=== PATIENT | male | born 1980 | race Caucasian/White ===

== ENCOUNTER 2017-10-18 19:55 | Emergency (ER) | payer SELFPAY ==
[2017-10-18 20:15] VITALS: BP 128/74
[2017-10-18 22:17] LABS: APPEARANCE,URINE CLEAR; BILIRUBIN,URINE NEGATIVE (NEGATIVE); COLOR,URINE YELLOW; GLUCOSE, URINE NEGATIVE (NEGATIVE); KETONES,URINE NEGATIVE (NEGATIVE); LEUKOCYTE ESTERASE,URINE TRACE (NEGATIVE); NITRITE,URINE NEGATIVE (NEGATIVE); PROTEIN,URINE NEGATIVE (NEGATIVE); URINE SPECIFIC GRAVITY 1.011; UROBILINOGEN,URINE NEGATIVE mg/dL (<2.0)
[2017-10-18] MEDS ORDERED: ONDANSETRON 4 MG TAB.RAPDIS PO ONE (22:30)
[2017-10-18] MEDS ORDERED: CLONIDINE 0.1 MG/24 HR PATCH.TDWK TD ONE (22:30)
[2017-10-18] MEDS ORDERED: LOPERAMIDE HCL 2 MG CAPSULE PO ONE (22:30)
--- NOTE | 2017-10-18 22:31 | ER Document Report ---
ED General - General Chief Complaint: Psych Problem Stated Complaint: DETOX Time Seen by Provider: 10/18/17 22:30 Notes: Patient is a 37-year-old male past medical history heroin abuse since age 17, presents after he has been off his methadone for 3 days. He used some heroin to help his symptoms, but he is requesting detox. He recently moved down to [place] and was having trouble getting into the [place] methadone clinic. He is having nausea, vomiting, diarrhea and shivering. Denies alcohol or benzo withdrawal. TRAVEL OUTSIDE OF THE U.S. IN LAST 30 DAYS: No - Related Data Allergies/Adverse Reactions: No Known Allergies Allergy (Unverified 10/18/17 19:58) Past Medical History - General Information source: Patient - Social History Smoking Status: Current Every Day Smoker Drug Abuse: Heroin Family History: Reviewed & Not Pertinent Review of Systems - Review of Systems Notes: REVIEW OF SYSTEMS: CONSTITUTIONAL: -fevers, +chills EENT: -eye pain, -difficulty swallowing, -nasal congestion CARDIOVASCULAR: -chest pain, -syncope. RESPIRATORY: -cough, -SOB GASTROINTESTINAL: -abdominal pain, +nausea, +vomiting, +diarrhea GENITOURINARY: -dysuria, -hematuria MUSCULOSKELETAL: -back pain, -neck pain SKIN: -rash or skin lesions. HEMATOLOGIC: -easy bruising or bleeding. LYMPHATIC: -swollen, enlarged glands. NEUROLOGICAL: -altered mental status or loss of consciousness, -headache, - neurologic symptoms PSYCHIATRIC: -anxiety, -depression. ALL OTHER SYSTEMS REVIEWED AND NEGATIVE. Physical Exam - Vital signs Vitals: Temp Pulse Resp BP Pulse Ox 98.8 F 83 16 128/74 H 98 10/18/17 20:13 10/18/17 20:13 10/18/17 20:13 10/18/17 20:13 10/18/17 20:13 - Notes Notes: PHYSICAL EXAMINATION: GENERAL: In no acute distress. HEAD: Atraumatic, normocephalic. EYES: Pupils equal round and reactive to light, extraocular movements intact, sclera anicteric, conjunctiva are normal. ENT: nares patent, oropharynx clear without exudates. Moist mucous membranes. NECK: Normal range of motion, supple without lymphadenopathy LUNGS: Breath sounds clear to auscultation bilaterally and equal. No wheezes rales or rhonchi. HEART: Regular rate and rhythm without murmurs ABDOMEN: Soft, nontender, normoactive bowel sounds. No guarding, no rebound. No masses appreciated. EXTREMITIES: Normal range of motion, no pitting or edema. No cyanosis. NEUROLOGICAL: Cranial nerves grossly intact. Normal speech, normal gait. Normal sensory and motor exams. PSYCH: Normal mood, normal affect. SKIN: Warm, Dry, normal turgor, no rashes or lesions noted. Course - Re-evaluation Re-evalutation: Pt with signs and symptoms of opiate withdrawal. No inpatient detox at [facility]. Provided him with outpatient referral and symptomatic treatment with clonidine , Zofran and Imodium. - Vital Signs Vital signs: Temp Pulse Resp BP Pulse Ox 98.8 F 83 16 128/74 H 98 10/18/17 20:13 10/18/17 20:13 10/18/17 20:13 10/18/17 20:13 10/18/17 20:13 - Laboratory Laboratory results interpreted by me: 10/18/17 21:38 Ur Leukocyte Esterase TRACE H Discharge - Discharge Clinical Impression: Opioid withdrawal Condition: Stable Disposition: HOME, SELF-CARE Additional Instructions: Call the resources provided for outpatient referral to detox. Use Zofran for nausea and Imodium for diarrhea. Prescriptions: Ondansetron [Zofran Odt 4 mg Tablet] 1 - 2 tab PO Q4H PRN #15 tab.rapdis PRN Reason: For Nausea/Vomiting Forms: Elevated Blood Pressure Referrals: [facility] [Outside] - Follow up as needed
== END 2017-10-18 22:54 | disposition home or self-care (01) ==
LOC: ER 19:55
DX: F11.23 Opioid dependence with withdrawal (principal); R11.2 Nausea with vomiting, unspecified; R19.7 Diarrhea, unspecified; F17.200 Nicotine dependence, unspecified, uncomplicated
CPT/HCPCS: 99284; 81001; S0119; J3490

== ENCOUNTER 2017-10-19 01:46 | Emergency (ER) | payer SELFPAY ==
[2017-10-19 01:53] VITALS: BP 122/82
--- NOTE | 2017-10-19 06:41 | ER Document Report ---
ED General - General Mode of Arrival: Ambulatory Information source: Patient TRAVEL OUTSIDE OF THE U.S. IN LAST 30 DAYS: No <UNIQUE BANG - Last Filed: 10/19/17 08:14> <PEACE HENDRICKSON - Last Filed: 10/19/17 10:42> <GARRETT CHURCH - Last Filed: 10/19/17 10:49> - General Chief Complaint: Medical Clearance Stated Complaint: WITHDRAWL Time Seen by Provider: 10/19/17 06:12 Notes: 37 y.o male with a PMHx of Heroine abuse since the age of 27 (although previous record states 17 years of age) presents to the ED requesting for detox. Pt recently moved down to [place] from [facility] and is having trouble getting into the [facility] and reports that he is withdrawing from Methadone. Pt reports that he last had Methadone 3 days ago and states that he has been using Heroine in the meantime to help him out while he was without Methadone. He denies ever trying detoxing from Heroine in the past 10 years. Pt complains of nausea, vomiting and diarrhea today, reporting the last episode of vomiting was about 30 minutes ago and last episode of diarrhea was about 1.5 hours ago. He reports that he has not eaten, drank or slept much in the past few days. He states that he currently is experiencing nausea, worsening with "certain smells". Pt was seen here yesterday evening and had a Clonidine patch placed last night around 2245. Pt was discharged from here last night with instructions to follow up with the Methadone clinic who told him to come here if he needed because there are not any bed available. Pt denies any other medical issues or any PSHx. Pt denies any allergies. Pt came with 2 other people, all of which came in with drug withdrawal and recently moved from [place]. (UNIQUE BANG) - Related Data Allergies/Adverse Reactions: No Known Allergies Allergy (Unverified 10/18/17 19:58) Past Medical History - General Information source: Patient - Social History Smoking Status: Current Every Day Smoker Chew tobacco use (# tins/day): No Frequency of alcohol use: Social Drug Abuse: Heroin - managed with Methadone when he lived in [place]. 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[place], currently doesn't work Family History: Reviewed & Not Pertinent Patient has suicidal ideation: No Patient has homicidal ideation: No Renal/ Medical History: Denies: Hx Peritoneal Dialysis <UNIQUE BANG - Last Filed: 10/19/17 08:14> Review of Systems - Review of Systems Constitutional: See HPI - Requesting detox EENT: No symptoms reported Cardiovascular: No symptoms reported Respiratory: No symptoms reported Gastrointestinal: See HPI, Diarrhea, Nausea, Vomiting Genitourinary: No symptoms reported Male Genitourinary: No symptoms reported Musculoskeletal: No symptoms reported Skin: No symptoms reported Hematologic/Lymphatic: No symptoms reported Neurological/Psychological: No symptoms reported -: Yes All other systems reviewed and negative <UNIQUE BANG - Last Filed: 10/19/17 08:14> Physical Exam <UNIQUE BANG - Last Filed: 10/19/17 08:14> <PEACE HENDRICKSON - Last Filed: 10/19/17 10:42> <GARRETT CHURCH - Last Filed: 10/19/17 10:49> - Vital signs Vitals: Temp Pulse Resp BP Pulse Ox 98.1 F 81 18 122/82 98 10/19/17 01:51 10/19/17 01:51 10/19/17 01:51 10/19/17 01:51 10/19/17 01:51 - Notes Notes: Physical Exam: General: Alert, appears well. Sleeping upon entering room. HEENT: Normocephalic. Atraumatic. PERRL. Extraocular movements intact. Dry mucous membranes. Neck: Supple. Non-tender. Respiratory: No respiratory distress. Clear and equal breath sounds bilaterally. Cardiovascular: Regular rate and rhythm. Abdominal: Normal Inspection. Non-tender. No distension. Normal Bowel Sounds. Back: Non-tender. No deformity or step off. Extremities: Moves all four extremities. Upper extremities: Normal inspection. Normal ROM. Lower extremities: Normal inspection. No edema. Normal ROM. Neurological: Normal cognition. AAOx3. Normal speech. Psychological: Normal affect. Normal Mood. Skin: Warm. Dry. Normal color. (UNIQUE BANG) Course - Laboratory Result Diagrams: 10/19/17 06:51 10/19/17 06:51 <UNIQUE BANG - Last Filed: 10/19/17 08:14> - Laboratory Result Diagrams: 10/19/17 06:51 10/19/17 06:51 <PEACE HENDRICKSON - Last Filed: 10/19/17 10:42> - Laboratory Result Diagrams: 10/19/17 06:51 10/19/17 06:51 <GARRETT CHURCH - Last Filed: 10/19/17 10:49> - Vital Signs Vital signs: Temp Pulse Resp BP Pulse Ox 98.1 F 81 18 122/82 98 10/19/17 01:51 10/19/17 01:51 10/19/17 01:51 10/19/17 01:51 10/19/17 01:51 - Laboratory Laboratory results interpreted by me: 10/19/17 10/19/17 06:51 06:51 RDW 14.3 H Sodium 146.4 H Discharge <UNIQUE BANG - Last Filed: 10/19/17 08:14> <PEACE HENDRICKSON - Last Filed: 10/19/17 10:42> <GARRETT CHURCH - Last Filed: 10/19/17 10:49> - Discharge Clinical Impression: Methadone use disorder, severe, dependence, Heroin abuse Condition: Stable Disposition: HOME, SELF-CARE Additional Instructions: NARCOTIC / OPIOD ABUSE: Narcotics and opiods are pain-relieving drugs that are often abused. They are addicting. Narcotics cause euphoria, but it often takes increasing amounts to "feel good" and avoid withdrawal symptoms. Overdose of narcotics causes small pupils, coma, and decreased breathing. It's a common cause of . Purity of street narcotics is unpredictable. Injection of narcotics is risky for abscesses, endocarditis (heart infection), pneumonia, and AIDS. Withdrawal from narcotics causes goose bumps, watery mouth, sweating, nasal congestion, muscle aches, abdominal cramps, vomiting, and diarrhea. There 's often restlessness and confusion. Treatment programs are available, but you must make the decision to quit. Medication (such as clonidine) can be prescribed to control the symptoms of withdrawal. FOLLOW-UP CARE: You have been provided resources for both inpatient and outpatient substance abuse treatment. Please continue working with [facility] for a detox bed. If you experience worsening or a significant change in your symptoms , notify the physician immediately or return to the Emergency Department at any time for re-evaluation. Referrals: [facility] [Outside] - Follow up as needed Scribe Attestation: 10/19/17 07:09 I personally performed the services described in the documentation, reviewed and edited the documentation which was dictated to the scribe in my presence, and it accurately records my words and actions. (GARRETT CHURCH) Scribe Documentation - Scribe Written by Landon:: Landon Westbrook 10/19/17 [id number] acting as scribe for :: Jose Juan <UNIQUE BANG - Last Filed: 10/19/17 08:14>
[2017-10-19] MEDS ORDERED: DIPHENHYDRAMINE HCL 50 MG CAPSULE PO ONE (06:45)
[2017-10-19] MEDS ORDERED: ONDANSETRON 4 MG TAB.RAPDIS PO ONE (06:45)
[2017-10-19 07:26] LABS: ABSOLUTE LYMPHOCYTES (AUTO) 2.1 10^3/uL (0.5-4.7); ABSOLUTE MONOCYTES (AUTO) 0.4 10^3/uL (0.1-1.4); ABSOLUTE NEUT (AUTO) 6.4 10^3/uL (1.7-8.2); BASOPHILS % (AUTO) 0.3 % (0-2); EOSINOPHILS % (AUTO) 0.3 % (0-6); HEMATOCRIT 41.7 % (37.9-51.0); HEMOGLOBIN 13.9 g/dL (13.5-17.0); LYMPHOCYTES % (AUTO) 23.5 % (13-45); MEAN CORPUSCULAR HGB CONC 33.5 g/dL (32.0-36.0); MEAN CORPUSCULAR VOLUME 84 fl (80-97); MONOCYTES % (AUTO) 4.9 % (3-13); PLATELET COUNT 295 10^3/uL (150-450); RED BLOOD COUNT 4.97 10^6/uL (4.35-5.55); RED CELL DISTRIBUTION WIDTH 14.3 % (11.5-14.0); TOTAL CELLS COUNTED % (AUTO) 100 %
[2017-10-19 07:35] LABS: ALANINE AMINOTRANSFERASE 41 U/L (21-72); ALBUMIN 4.2 g/dL (3.5-5.0); ALKALINE PHOSPHATASE 69 U/L (38-126); ANION GAP 12 (5-19); ASPARTATE AMINO TRANSFERASE 20 U/L (17-59); BILIRUBIN,DIRECT 0.3 mg/dL (0.0-0.4); BILIRUBIN,TOTAL 0.4 mg/dL (0.2-1.3); BLOOD UREA NITROGEN 13 mg/dL (7-20); CALCIUM 9.9 mg/dL (8.4-10.2); CARBON DIOXIDE 27 mmol/L (22-30); CHLORIDE 107 mmol/L (98-107); GLUCOSE 108 mg/dL (75-110); POTASSIUM 4.5 mmol/L (3.6-5.0); SODIUM 146.4 mmol/L (137-145); TOTAL PROTEIN 7.9 g/dL (6.3-8.2)
[2017-10-19 11:48] LABS: AMORPHOUS SEDIMENT,URINE TRACE /HPF; APPEARANCE,URINE SLIGHTLY-CLOUDY; BILIRUBIN,URINE NEGATIVE (NEGATIVE); COLOR,URINE YELLOW; GLUCOSE, URINE NEGATIVE (NEGATIVE); KETONES,URINE NEGATIVE (NEGATIVE); LEUKOCYTE ESTERASE,URINE TRACE (NEGATIVE); NITRITE,URINE NEGATIVE (NEGATIVE); PROTEIN,URINE NEGATIVE (NEGATIVE); URINE SPECIFIC GRAVITY 1.021
--- NOTE | 2017-10-19 13:59 | PSYCHOLOGICAL NOTE ---
Psych Note - Psych Note Psych Note: Reason for consult: detox 37 y.o male with a PMHx of Heroine abuse since the age of 27 (although previous record states 17 years of age) presents to the ED requesting for detox. Pt recently moved down to [place] from [facility] and is having trouble getting into the [facility] and reports that he is withdrawing from Methadone. Pt reports that he last had Methadone 3 days ago and states that he has been using Heroine in the meantime to help him out while he was without Methadone. He denies ever trying detoxing from Heroine in the past 10 years. Patient disclosed that he currently lives with his cousin and was brought to [facility] because "I am sick... I am withdrawing from methadone and heroin." Patient states he has been using on and off for the last 10 to years and has never been a substance abuse treatment. Patient denies any mental health treatment stating "if I had a problem I just used methadone." Patient is unclear on how long he has been in the current local area stating 4 to 5 days; he is originally from [facility]. Patient discloses passive suicidal ideation because "I want the pain and everything to go away... I have not slept or eaten in days." Patient denies having any plan but being very sick. Patient is alert and orientated to person, place, time and circumstance. Mood is irritable with patient visibly appearing to feel ill. Patient denies homicidal ideation and endorses passive suicidal ideation i.e. no plans means or intent. Delusions are absent behaviors congruent with intact reality based presentation i.e. organized and linear thought process. Eye contact is poor. Conversational speech is muffled at times difficult to hear. Attention and concentration are fair. Insight, judgment, impulse control is historically poor due to substance abuse no mediation recommendations at this time. diagnosis 292.0 (F11.23) opiate withdrawal; methadone and heroin Impression\\plan: Patient is cleared from acute psychiatric services. Patient is requesting assistance in obtaining a detox bed. Patient has been engaged with [facility] for a bed. Clinician provided additional resources for both inpatient and outpatient substance abuse. Patient endorses passive suicidal ideation (ie no plans, means or intent) in connection with the pain he is experiencing through his withdrawals. Dr. Leroy was consulted and the care and management this patient; attending physician is agreement with recommendations and disposition.
== END 2017-10-19 12:02 | disposition home or self-care (01) ==
LOC: ER 01:46
DX: F11.20 Opioid dependence, uncomplicated (principal); R11.2 Nausea with vomiting, unspecified; R19.7 Diarrhea, unspecified; F17.200 Nicotine dependence, unspecified, uncomplicated
CPT/HCPCS: 99284; 36415; 83735; 85025; 80053; 81001; S0119